=== PATIENT | female | born 1985 | race Caucasian/White ===

== ENCOUNTER 2017-01-18 08:50 | Emergency (ER) | payer MEDICAID ==
[2017-01-18 09:00] VITALS: BP 115/62; PULSE 91; RESP 18; TEMP 98; O2SAT 97
--- NOTE | 2017-01-18 09:13 | UCPHY ---
H & P Time Seen by Provider: 01/18/17 08:59 Patient Type: Established HPI/ROS: CHIEF COMPLAINT: Sore throat History by patient HISTORY OF PRESENT ILLNESS: 32-year-old woman presents complaining of 2 days of sore throat and hoarseness and malaise. Patient denies any fever or chills. She has had no cough or runny nose. She has been exposed to strep. She is able to take fluids but has some pain with swallowing. She smokes marijuana occasionally but has not smoked recently. REVIEW OF SYSTEMS: As in HPI, and all other systems reviewed and are negative Smoking Status: Former smoker Physical Exam: General Appearance: Alert and no distress. No stridor Head: normocephalic, atraumatic, no sinus tenderness Eyes: Pupils equal and round no injection. Ears: TM clear bilat OP: mucus membranes moist, + erythema, mildly swollen uvula, bilateral tonsillar enlargement, no exudates Neck: no meningismus, no cervical nodes, no submandibular nodes Respiratory: Chest is nontender, lungs are clear to auscultation. Cardiac: regular rate and rhythm. Gastrointestinal: Abdomen is soft and nontender, no masses, bowel sounds normal. Musculoskeletal: Neck is supple and nontender. Extremities have full range of motion and are nontender. Skin: No rashes or lesions. Constitutional: Initial Vital Signs Temperature (C) 36.6 C 01/18/17 08:58 Heart Rate 91 01/18/17 08:58 Respiratory Rate 18 01/18/17 08:58 Blood Pressure 115/62 01/18/17 08:58 O2 Sat (%) 97 01/18/17 08:58 O2 Delivery Mode Room Air Allergies/Adverse Reactions: codeine Allergy (Verified 06/08/16 15:40) Vomiting Home Medications: Medication Instructions Recorded Synthroid 07/23/15 Medical Decision Making ED Course/Re-evaluation: Patient presents sore throat but no evidence of peritonsillar abscess or respiratory compromise. Rapid strep was negative. Patient was given reassurance and we discussed home care, conservative measures and return precautions. - Data Points Laboratory Results: 01/18/17 01/18/17 Unknown 09:05 Group A Strep Screen NEGATIVE (NEGATIVE) Group A Strep DNA Pending Departure - Departure Disposition: Home, Routine, Self-Care Clinical Impression: Acute pharyngitis, unspecified Qualifiers: Pharyngitis/tonsillitis etiology: unspecified etiology Qualified Code(s): J02.9 - Acute pharyngitis, unspecified Condition: Good Instructions: Pharyngitis (ED) Additional Instructions: You were seen by Dr. Ashley Ambrose today. Return for any worsening or new concerns. Referrals: NONE *PRIMARY CARE P,. [Primary Care Provider] - As per Instructions - PQRS PQRS Measurement: NA
== END 2017-01-18 09:29 | disposition home or self-care (01) ==
LOC: CED 08:50
DX: J02.9 Acute pharyngitis, unspecified (principal); Z87.891 Personal history of nicotine dependence
CPT/HCPCS: 87880-PO; 99214-PO; G0463-PO

== ENCOUNTER 2018-12-31 18:51 | Emergency (ER) | payer MEDICAID ==
[2018-12-31 19:06] VITALS: BP 132/86
[2018-12-31] MEDS ORDERED: PENICILLIN VK 250MG PREPACK#6 BTL TAKEHOME ONE (19:14)
--- NOTE | 2018-12-31 19:15 | EDPHY ---
H & P Time Seen by Provider: 12/31/18 19:06 HPI/ROS: 33-year-old female presents complaining of pain in her upper 2nd molar tooth 2. For several weeks, with severe caries she is aware she needs to get it removed but is concerned there may be an infection at this point. Is taking ibuprofen for pain Review of systems As per HPI General no fever no chills no weakness HEENT no eye pain no eye discharge. No eye redness, no sore throat Respiratory no cough, no shortness of breath Cardiac no chest pain, no peripheral edema GI no abdominal pain, no diarrhea, no constipation, no nausea, no vomiting no flank pain, no hematuria, no dysuria Musculoskeletal no myalgias, no joint pain Heme no easy bruising, no easy bleeding Endo no polyuria, no polydipsia Skin no rashes, no pruritus Neuro no syncope, no dizziness, no headaches Past Medical/Surgical History: Hypothyroidism Social History: Lives with family Denies alcohol or drug use Smoking Status: Former smoker Physical Exam: 33-year-old female alert and oriented no acute distress nontoxic appearance, afebrile Atraumatic normocephalic Oropharynx-no erythema of posterior pharynx no tonsillar swelling no tongue swelling no tongue elevation No trismus Tooth #2 severe dental caries, with erythema but no swelling no drainage Neck supple, no lymphadenopathy Lungs clear to auscultation bilaterally, no respiratory distress Heart regular rate and rhythm Skin no rash Constitutional: Initial Vital Signs Temperature (C) 36.7 C 12/31/18 19:02 Heart Rate 73 12/31/18 19:02 Respiratory Rate 18 12/31/18 19:02 Blood Pressure 132/86 H 12/31/18 19:02 O2 Sat (%) 96 12/31/18 19:02 O2 Delivery Mode Room Air Allergies/Adverse Reactions: codeine Allergy (Verified 12/31/18 19:01) Vomiting Home Medications: Medication Instructions Recorded Synthroid 07/23/15 Albuterol Hfa Anes Only [Proair 2 puffs IH Q4 PRN #1 mdi 04/09/18 Hfa Icu (*)] Penicillin V Potassium [Penicillin 500 mg PO QID 8 Days #32 tablet 12/31/18 VK] ED Images - Head Mouth: 1 - molar #2 severe caries with surrounding erythema of gum, no swelling, no drainage Medical Decision Making ED Course/Re-evaluation: Patient seen and evaluated for dental pain Impression Severe dental caries with possible periapical abscess Plan Patient needs to see dental for extraction Will start penicillin VK today, 500 mg four times daily Differential Diagnosis: Differential diagnosis considered but not limited to: Dental pain, dental caries, periapical abscess - Data Points Medications Given: Discontinued Medications Penicillin V Potassium (Pen Vk 250 Mg Prepack#6) 1 btl TAKEHOME EDNOW ONE PRN Reason: Protocol Stop: 12/31/18 19:15 Last Admin: 12/31/18 19:27 Dose: 1 btl Departure - Departure Disposition: Home, Routine, Self-Care Clinical Impression: Infected dental caries Condition: Good Instructions: Penicillin V (By mouth), Dental Abscess (ED) Referrals: NONE *PRIMARY CARE P,. [Primary Care Provider] - As per Instructions Dental Aid [Outside] - As per Instructions Prescriptions: Penicillin V Potassium [Penicillin VK] 500 mg PO QID 8 Days #32 tablet
== END 2018-12-31 19:31 | disposition home or self-care (01) ==
LOC: CED 18:51
DX: K02.9 Dental caries, unspecified (principal); Z87.891 Personal history of nicotine dependence
CPT/HCPCS: 99283-ER